=== PATIENT | male | born 1995 | race Caucasian/White ===

== ENCOUNTER 2020-10-11 22:06 | Emergency (ER) | payer OTHER ==
[~2020-10-11] VITALS: Ht 188 cm; Wt 97.5 kg
[2020-10-11] MEDS ORDERED: SODIUM CHLORIDE 0.9% 100 ML ONE (22:23)
[2020-10-11] MEDS: ACETAMINOPHEN 325 MG TAB PO ONE (22:43)
[2020-10-11] MEDS: CASIRIVIMAB/IMDEVIMAB 10 ML in SODIUM CHLORIDE 0.9% 100 ML IV ONE (22:43)
== END 2020-10-11 23:41 | disposition home or self-care (01) ==
LOC: ER 22:09
DX: U07.1 COVID-19 (principal)
CPT/HCPCS: 99284; J7050